=== PATIENT | female | born 1995 | race Caucasian/White ===

== ENCOUNTER 2020-11-18 11:18 | Inpatient (IN) | payer SELFPAY ==
[~2020-11-18] VITALS: Ht 167.6 cm; Wt 72.6 kg
[2020-11-18] MEDS ORDERED: LIDOCAINE 1% 500 MG/50 ML VIAL ONE (11:35)
[2020-11-18] MEDS ORDERED: METHYLERGONOVINE 0.2 MG/ML AMP ONE (12:14)
[2020-11-18] MEDS ORDERED: METHYLERGONOVINE 0.2 MG/ML AMP IM PRN ×2 (12:20→17:45)
[2020-11-18] MEDS ORDERED: MISOPROSTOL 200 MCG TAB ONE (12:54)
[2020-11-18] MEDS ORDERED: OXYTOCIN 20 UNITS/LR PREMIX 1,000 ML IV ONE (12:54)
[2020-11-18] MEDS ORDERED: LIDOCAINE MPF 1% 10 MG/ML VIAL INJ SCH (12:55)
[2020-11-18] MEDS ORDERED: OXYTOCIN 20 UNITS in LACTATED RINGERS 1,000 ML IV SCH (12:55)
[2020-11-18] MEDS ORDERED: MISOPROSTOL 100 MCG TAB RC SCH (13:01)
[2020-11-18 13:26] LABS: BASOPHILS # (AUTO) 0.2 K/uL (0.00-0.22); BASOPHILS % (AUTO) 1.2 % (0.0-2.0); EOSINOPHILS % (AUTO) 0.2 % (0.0-4.0); HEMATOCRIT 35.3 % (36-48); HEMOGLOBIN 11.6 g/dL (12.0-16.0); LYMPHOCYTES # (AUTO) 0.8 K/uL (2.5-16.5); LYMPHOCYTES % (AUTO) 4.1 % (20.5-51.1); MEAN CORPUSCULAR HEMOGLOBIN 28 pg (27-31); MEAN CORPUSCULAR HGB CONC 33 g/dL (33-37); MEAN CORPUSCULAR VOLUME 85.5 fL (80-94); MONOCYTES # (AUTO) 0.5 K/uL (0.8-1.0); MONOCYTES % (AUTO) 2.5 % (1.7-9.3); NEUTROPHILS # (AUTO) 17.4 K/uL (1.8-7.7); PLATELET COUNT (AUTO) 219 K/uL (140-450); RED BLOOD CELL COUNT(AUTO) 4.13 MIL/uL (4.20-5.40); RED CELL DISTRIBUTION WIDTH 13.5 % (11.6-13.7); WHITE BLOOD COUNT (AUTO) 18.9 K/uL (4.8-10.8)
[2020-11-18 16:22] VITALS: BP 120/71
[2020-11-18] MEDS ORDERED: BENZOCAINE/MENTHOL 20%-0.5% 60 GM CAN TP PRN (17:45)
[2020-11-18] MEDS ORDERED: MEASLES, MUMPS, AND RUBELLA 1 VIAL SQVAC PRN (17:45)
[2020-11-18] MEDS ORDERED: OXYTOCIN 10 UNITS/ML VIAL IM PRN (17:45)
[2020-11-18] MEDS ORDERED: METHYLERGONOVINE 0.2 MG TAB PO PRN (17:45)
[2020-11-18 17:58] LABS: BILIRUBIN,URINE NEGATIVE (NEGATIVE); BLOOD, URINE 3+ (NEGATIVE); LEUKOCYTE ESTERASE ,URINE 1+ (NEGATIVE); NITRITE, URINE POSITIVE (NEGATIVE); UGLUCOSE NEGATIVE (NEGATIVE)
[2020-11-18 18:24] LABS: APPEARANCE,URINE CLOUDY (CLEAR); COLOR,URINE RED (YELLOW); RBC,URINE >100 /HPF (0-5)
[2020-11-18] MEDS: IBUPROFEN 800 MG TAB PO PRN ×2 (22:52→22:59)
[2020-11-19 05:57] LABS: HEMATOCRIT 29.9 % (36-48)
--- NOTE | 2020-11-19 08:32 | NUR ---
PATIENT HAS BEEN SCREENED AND CATEGORIZED LOW NUTRITION RISK. PATIENT WILL BE SEEN WITHIN 7 DAYS OF ADMISSION. 11/24/[address]
== END 2020-11-19 22:12 | disposition home or self-care (01) | DRG 807 ==
LOC: MLD 11:18 → MFCC 15:00
PROVIDERS: ADMIT Obstetrics & Gynecology; ATTEND Obstetrics & Gynecology
PROC: 10E0XZZ Delivery of Products of Conception, External Approach (ICD-10-PCS; principal; 2020-11-18)
DX: O80 Encounter for full-term uncomplicated delivery (principal); Z37.0 Single live birth; Z3A.40 40 weeks gestation of pregnancy; Z20.822 Contact with and (suspected) exposure to COVID-19
CPT/HCPCS: 36415; 59409; 81001; 85018; 85025; 86592; 86850; 86870; 86886; 86900; 86901; 87086; 96361; 96365; 96366; 96372; J2001; J2210; J2590; J2790; J7120